=== PATIENT | male | born 1985 | race Caucasian/White ===

== ENCOUNTER 2023-02-15 15:08 | Emergency (ER) | payer MEDICAID ==
[~2023-02-15] VITALS: Ht 172.7 cm; Wt 102.0 kg
[2023-02-15] MEDS ORDERED: dexamethasone sod phosphate 10mg/ml inj PO STA (17:57)
[2023-02-15] MEDS ORDERED: normal saline 1000ml 1,000 ML IV ONE (18:00)
[2023-02-15] MEDS ORDERED: ondansetron/PF 4mg/2ml inj IV ONE (18:00)
[2023-02-15] MEDS ORDERED: ketorolac trometh. 30mg/ml inj. IV ONE (18:00)
[2023-02-15 18:59] LABS: ALANINE AMINOTRANSFERASE 37 U/L (12-78); ALBUMIN 3.9 G/DL (3.4-5.0); ALBUMIN/GLOBULIN RATIO 0.9 (1.1-1.5); ALKALINE PHOSPHATASE 114 IU/L (46-116); ANION GAP 10 (8-16); ASPARTATE AMINO TRANSFERASE 21 U/L (10-37); BILIRUBIN,TOTAL 0.5 MG/DL (0.1-1.0); BLOOD UREA NITROGEN 16 MG/DL (7-18); BUN/CREATININE RATIO 12.8 (10.0-20.0); CALCIUM 9.3 MG/DL (8.5-10.1); CHLORIDE 99 MMOL/L (99-107); CREATININE 1.25 MG/DL (0.60-1.10); GLUCOSE 141 MG/DL (70-104); MAGNESIUM 2.2 MG/DL (1.5-2.4); POTASSIUM 4.3 MMOL/L (3.5-5.1); SODIUM 133 MMOL/L (135-145); TOTAL CARBON DIOXIDE 24.3 MMOL/L (24-32); TOTAL PROTEIN 8.1 G/DL (6.4-8.2); eGFR 65 ML/MIN
[2023-02-15 19:09] LABS: BASOPHILS # (AUTO) 0.1 X10'3 (0-0.2); BASOPHILS % (AUTO) 0.8 % (0-1); EOSINOPHILS % (AUTO) 0.2 % (0-6); HEMATOCRIT 45.4 % (42.0-52.0); HEMOGLOBIN 15.2 g/dl (14.0-17.9); LYMPHOCYTES # (AUTO) 1.2 X10'3 (1.1-4.8); LYMPHOCYTES % (AUTO) 7.8 % (21-51); MEAN CORPUSCULAR HEMOGLOBIN 27.8 PG (27.0-31.0); MEAN CORPUSCULAR HGB CONC 33.5 g/dL (33.0-36.5); MEAN PLATELET VOLUME 8.6 FL (7.4-10.4); MONOCYTES # (AUTO) 0.7 X10'3 (0-0.9); MONOCYTES % (AUTO) 4.7 % (2-12); NEUTROPHILS # (AUTO) 13.7 X10'3 (1.8-7.7); NEUTROPHILS % (AUTO) 86.5 % (42-75); PLATELET COUNT 170 X10'3 (140-440); RED BLOOD COUNT 5.47 X10'6 (4.70-6.10); RED CELL DISTRIBUTION WIDTH 14.4 % (11.5-14.5); WHITE BLOOD COUNT 15.8 X10'3 (4.5-11.0)
[2023-02-15 20:18] VITALS: BP 194/141
[2023-02-15] MEDS ORDERED: LORazepam 1 MG tablet PO ONE (20:20)
[2023-02-15] MEDS ORDERED: AZIT250T2 PO (20:56)
[2023-02-15] MEDS ORDERED: ONDA4TAB12 PO (20:56)
[2023-02-15] MEDS ORDERED: AMLO5TAB PO (20:56)
[2023-02-15] MEDS ORDERED: azithromycin 250mg tablet PO ONE (21:00)
[2023-02-15] MEDS ORDERED: amLODIPine 5mg tablet PO ONE (21:00)
== END 2023-02-15 21:13 | disposition home or self-care (01) ==
LOC: ER 15:09
DX: R51.9 Headache, unspecified (principal); R11.2 Nausea with vomiting, unspecified; J04.0 Acute laryngitis; I10 Essential (primary) hypertension; Z86.2 Personal history of diseases of the blood and blood-forming organs and certain disorders involving the immune mechanism; Z88.8 Allergy status to other drugs, medicaments and biological substances; Z79.899 Other long term (current) drug therapy
CPT/HCPCS: 36415; 71045; 80053; 83735; 84484; 85025; 93005; 93306; 96374; 99285; J1100; J1885; J2405; J7030